=== PATIENT | male | born 2000 | race Two or more races ===

== ENCOUNTER 2022-04-08 00:52 | Emergency (ER) | payer OTHER ==
[~2022-04-08] VITALS: Ht 177.8 cm; Wt 77.2 kg
[2022-04-08 01:03] VITALS: BP 148/99
[2022-04-08] MEDS ORDERED: KETOROLAC TROMETH 60MG/2ML VIAL IM ONE (02:45)
== END 2022-04-08 02:49 | disposition home or self-care (01) ==
LOC: ER 00:52 → EDBD 00:52 → ER 02:46
DX: R51.9 Headache, unspecified (principal); F17.210 Nicotine dependence, cigarettes, uncomplicated
CPT/HCPCS: 70450; 96372; 99285; J1885